=== PATIENT | male | born 1975 | race Caucasian/White ===

== ENCOUNTER 2023-12-04 17:25 | Emergency (ER) | payer OTHER, SELFPAY ==
[2023-12-04] MEDS ORDERED: Acetaminophen 500 MG TAB ONE (17:36)
[2023-12-04] MEDS ORDERED: Boostrix 0.5 ML (Tdap) VIAL (>/=7 yrs of age) ONE (17:37)
[2023-12-04] MEDS ORDERED: Lidocaine/Transparent Dressing 1 EACH KIT ONE (17:37)
[2023-12-04] MEDS ORDERED: Bacitracin 1 PK ONE (18:29)
== END 2023-12-04 18:34 | disposition home or self-care (01) ==
LOC: BURERS 17:25
DX: S01.01XA Laceration without foreign body of scalp, initial encounter (principal); F17.210 Nicotine dependence, cigarettes, uncomplicated; Z23 Encounter for immunization; X58.XXXA Exposure to other specified factors, initial encounter
CPT/HCPCS: 12002; 90715; 99282